=== PATIENT | female | born 1965 | race Caucasian/White ===

== ENCOUNTER 2019-04-29 08:42 | Outpatient (CLI) | payer OTHER, SELFPAY ==
--- NOTE | ~2019-04-29 | XR_ITS ---
XR hand LT min 3V DATE: 04/29/2019 09:09 INDICATION: Hand pain. Trigger thumb. No known injury. TECHNIQUE: 3 views COMPARISON: 03/23/2010 left wrist FINDINGS: Old healed fracture deformity of the distal radius. There is a mildly dorsally displaced intra-articular dorsal avulsion fracture of the base of the dist al phalanx of the fourth digit which appears most likely chronic. No recent fracture or dislocation, periosteal reaction or bone destruction is detected. Mild to moder ate osteopenia is suggested. IMPRESSION: Old distal radial fracture Likely old ununited chronic avulsion fracture of the dorsal base of the distal phalanx Reviewed, dictated and finalized at location B.
== END 2019-04-29 08:43 | disposition home or self-care (01) ==
PROVIDERS: PCP Internal Medicine; Visit Provider Internal Medicine
DX: M65.312 Trigger thumb, left thumb (principal); M79.643 Pain in unspecified hand
CPT/HCPCS: 73130

== ENCOUNTER 2019-07-13 15:04 | Emergency (ER) | payer OTHER, SELFPAY ==
--- NOTE | 2019-07-13 15:08 | ED.WOUNDLAC ---
HPI - Wound/Laceration General Chief Complaint: Wound/Laceration Stated Complaint: lacreation on hand Time Seen by Provider: 07/13/19 15:09 Source: patient and RN notes reviewed Mode of arrival: ambulatory Limitations: no limitations History of Present Illness HPI narrative: patient cut her left base of her thumb on a barbecue grill lid when it came down on her hand. Onset (ago): minute(s) Extremity Location: Left: hand Place: home Patient tetanus UTD: No Context: accidental Associated symptoms: none Related Data Allergies Allergy/AdvReac Type Severity Reaction Status Date / Time codeine Allergy Unknown VOMITING, Unverified 06/03/08 15:51 ITCHING Penicillins Allergy Unknown HIVES Unverified 06/03/08 15:51 Review of Systems Review of Systems: All systems reviewed & are unremarkable except as noted in HPI and below PMFSH Past Medical History Medical History (Updated 07/13/19 @ 15:57 by Emery Gonzalez MD) Seizure disorder Surgical History Surgical History (Updated 07/13/19 @ 15:57 by Emery Gonzalez MD) H/O hysterectomy for benign disease History of appendectomy History of foot surgery History of surgery on arm Social History Social History (Updated 07/13/19 @ 15:58 by Emery Gonzalez MD) Smoking packs per day: 0.5 Smoking cigarettes per day: 10.0 Smoking status: Current every day smoker Tobacco type: cigarettes Alcohol intake: current Alcohol use details: occasional Substance use: never Exam Const: General: healthy appearing, no acute distress and alert Nutritional Appearance: well nourished Orientation/consciousness: patient oriented x3 HENMT: Head: normal to inspection Eyes: Conjunctivae: conjunctivae normal Pupils: Equal, round and reactive pupils present EOM: EOMs intact bilaterally Neck: Neck: normal visual inspection Resp: Effort & Inspection: normal respiratory effort Auscultation: clear to auscultation bilaterally Cardio: Rate: regular rate Rhythm: regular rhythm GI: Auscultation: normal bowel sounds Back/Spine/Pelvis: Cervical Spine: cervical ROM normal Thoracic/Lumbar Spine: thoraco-lumbar ROM normal Skin: General skin exam: normal color Wounds: wounds noted flap left dorsal hand Other: On the hand is the 2.5 cm wound at the base of the left thumb but actually on the hand. Neuro: General: patient oriented x3, moves all extremities and no focal motor deficits Speech: normal speech Extrem: General: normal to inspection and no pedal edema Psych: Appearance: grossly normal and well kempt Mental Status: mental status grossly normal Affect: normal affect Attitude: cooperative Thought content: Yes Normal thought content present Procedures Laceration Laceration 1: Date: 07/13/19 Time: 15:33 Site: hand ( Base of left thumb) Side (If applicable): left Size (cm): 2.5 Description: flap and contaminated Depth: simple, single layer Local Anesthetic: lidocaine 1% Pre-repair: wound explored and irrigated ====== Skin Level ====== Skin layer closed with: nylon Size (cm): 4-0 Number of sutures: 4 Technique: simple, interrupted ====== Subcutaneous Layer ====== ====== Muscle Layer ====== ====== Tendon Layer ====== Discharge Plan Discharge Clinical Impression: Laceration Patient Disposition: Home, Self-Care Condition: Stable Instructions: Laceration (ED) Additional Instructions: Tylenol or Motrin as needed for pain. Sutures out in 10 days. Prescriptions: New clindamycin HCl 300 mg capsule 300 mg PO Q8H Qty: 21 RF: 0 Follow-up/Referrals: Bhupinder Jackson MD [Primary Care Provider] - Time of Disposition: 15:47
[2019-07-13 15:10] VITALS: BP 106/71; PULSE 96; RESP 18; TEMP 36.1; O2SAT 96
[2019-07-13] MEDS: TETANUS,DIPHTHERIA,AC PERTUSSIS ADULT 0.5 ML (ADACEL) IM (15:20)
== END 2019-07-13 15:50 | disposition home or self-care (01) ==
PROVIDERS: Emergency Provider Emergency Medicine; PCP Internal Medicine
DX: S61.412A Laceration without foreign body of left hand, initial encounter (principal); W45.8XXA Other foreign body or object entering through skin, initial encounter
CPT/HCPCS: 12001; 90471; 90715; 99282; 99283

== ENCOUNTER 2020-06-02 12:48 | Outpatient (CLI) | payer OTHER, SELFPAY ==
--- NOTE | ~2020-06-02 | XR_ITS ---
XR lumbar spine 2-3V DATE: 06/02/2020 13:37 INDICATION: Lower thoracic and upper lumbar spine TECHNIQUE: AP, lateral, coned lateral lumbosacral views COMPARISON: 02/21/2009 lumbar spine FINDINGS: There is diffuse osteopenia. No fracture or bone destruction of the lumbar spine is evident. The lumbar pedicles are intact. Lumbar interspaces are relatively well preserved. There is mild degenerative spurring. The sacroiliac joints are intact. IMPRESSION: Diffuse osteopenia Mild degenerative spurring of the lumbar spine Reviewed, dictated and finalized at location A.
--- NOTE | ~2020-06-02 | XR_ITS ---
XR thoracic spine 3V DATE: 06/02/2020 13:37 INDICATION: Low thoracic and upper lumbar back pain, radiating to left hip TECHNIQUE: AP, lateral, swimmer views COMPARISON: None FINDINGS: Diffuse osteopenia. There is degenerative spurring of the thoracic spine. No fracture or bone destruction is evident. The thoracic pedicles are intact. No paraspinal soft tissue thickening. IMPRESSION: Recent osteopenia Mild degenerative spurring Reviewed, dictated and finalized at location A.
== END 2020-06-02 12:49 | disposition home or self-care (01) ==
LOC: CHSIMG 12:51
PROVIDERS: PCP Internal Medicine; Visit Provider Internal Medicine
DX: M54.9 Dorsalgia, unspecified (principal); F17.200 Nicotine dependence, unspecified, uncomplicated
CPT/HCPCS: 72072; 72100

== ENCOUNTER 2020-06-21 08:22 | Outpatient (CLI) | payer OTHER, SELFPAY ==
--- NOTE | ~2020-06-21 | DEXA_ITS ---
Bone Density Report Name: Brenna Hines Age: 54 Sex: Female Ethnicity: White Date of : 1965 Indication: postmenopausal; screening for osteoporosis; seizure disorder; Referring Provider: Bhupinder Jackson Study: Bone densitometry was performed. Exam Date: June 21, 2020 Accession number: [id number] Bone Density: Region BMD T-score Z-score Classification AP Spine(L1-L4) 0.716 -3.0 -2.0 Osteoporosis Femoral Neck (Left) 0.613 -2.1 -1.1 Osteopenia Total Hip (Left) 0.754 -1.5 -0.9 Osteopenia Femoral Neck (Right) 0.595 -2.3 -1.2 Osteopenia Total Hip (Right) 0.786 -1.3 -0.6 Osteopenia Femoral Neck Mean 0.604 -2.2 -1.2 Osteopenia Total Hip Mean 0.770 -1.4 -0.7 Osteopenia World Health Organization criteria for BMD impression classify patients as: Normal (T-score at or above -1.0), Osteopenia (T-score between -1.0 and -2.5), or Osteoporosis (T-score at or below -2.5). 10-year Fracture Risk: FRAX not reported because: Some T-score for Spine Total or Hip Total or Femoral Neck at or below -2.5 Clinical Information Provided by Patient: Smokes Has used the following medications: Vitamin D, Calcium Has the following medical conditions: Any Seizure Disorders Patient maximum height was 68 Menopause Age: 40 Drinks caffeinated beverages Onset of menses at age 17 Number of children 0 Impression: The patient has osteoporosis, based on the Total Spine T-score. The patient has risk factors, including: smoking. Discussion: HIGH RISK OF FRACTURE. BONE DENSITY IS UNDESIRABLY LOW AT ONE OR MORE SKELETAL SITES, CONSISTENT WITH OSTEOPOROSIS. ALSO, BONE DENSITY IS LOWER THAN EXPECTED FOR AGE AND SEX AT ONE OR MORE SKELETAL SITES; RECOMMEND A DILIGENT SEARCH FOR SECONDARY CAUSES OF BONE LOSS. This patient's lowest T-score meets the World Health Organization's (WHO) criteria for osteoporosis at one or more sites (T-score -2.5 or below). In untreated patients, the risk of osteoporotic fracture increases approximately two-fold for each 1.0 SD decrease in T-score. Low bone density is not the only risk factor for fracture; also consider factors such as patient's age, frailty or poor health, risk of falling, risk of injury, previous osteoporotic fracture, family history of osteoporosis, cigarette smoking, low body weight, etc. Not everyone with low bone mineral density has osteoporosis; osteomalacia and other metabolic bone disorders should also be considered. Patients who have osteoporosis should be evaluated for specific diseases and conditions (secondary causes) that may cause or contribute to bone loss. The [place] [employer]ocrinologists (AACE) and National Osteoporosis Foundation (NOF) recommend pharmacologic intervention for all postmenopausal women whose T-score is in this range. Als
== END 2020-06-21 08:23 | disposition home or self-care (01) ==
LOC: CHSIMG 08:23
PROVIDERS: PCP Internal Medicine; Visit Provider Internal Medicine
DX: Z78.0 Asymptomatic menopausal state (principal); M81.0 Age-related osteoporosis without current pathological fracture
CPT/HCPCS: 77080

== ENCOUNTER 2020-07-05 10:50 | Outpatient (RCR) | payer OTHER, SELFPAY ==
--- NOTE | 2020-07-05 12:01 | PTOPEVAL ---
Thank you for referring Brenna Hines to [facility].? The patient is scheduled to be seen for therapy? ____x/week for ___ weeks. Please review, sign, date and return this plan of care KIANA. I agree with and certify that the following plan of care is medically necessary. Referring Physician Date Admitting Provider: Attending Provider: Bhupinder Jackson MD Referring Provider: *PT Outpatient Evaluation Start: 07/05/20 07:02 Freq: Status: Active Protocol: Document 07/05/20 11:03 [facility] (Rec: 07/05/20 12:00 [facility] [id number]) Therapy Assessment Status Assessment Status Assessment Status Evaluation Outpatient Past Medical History Neurological History Hx Seizures Yes Musculoskeletal History Hx Orthopedic Surgery Yes: left arm, geri feet Reproductive History Hx Hysterectomy Yes Evaluation Information Problem Diagnosis LBP Onset 05/16/20 Subjective Information Patient states that she woke Query Text:As Reported By Patient/ up and her lower back started Family bothering her to where she could not get up, and then as that pain started to fade, her L hip started to bother her. Patient states that standing up from a seated position is difficulty, walking/standing for a prolonged period of time are also difficult. Patient denies radicular symptoms and it is not waking her up at night. Patient states that her goal for therapy is to be able to walk without a limp. Prior Level of Function Activity Level (Last 3 Months) Occupation bartendere Hand Dominance Right Activity of Daily Living Ability Independent Indoor/Home Mobility Independent Community Mobility Independent Stairs Ability Independent Functional Cognition (Planning, Shopping Independent , Taking Medications) Cooking Yes Cleaning Yes Laundry Yes Shopping Yes Driving Yes Pain Assessment Timing of Pain Assessment Timing of Pain Assessment Assessment Pain Scale Pain Scale Used Numeric (1 - 10) Self Report Pain Assessment Left Back Reported Pain Level 2 Greatest Pain Intensity 9 Pain Score Pain Score 2: Self Report Interventions Used Interventions Us
--- NOTE | 2020-07-29 16:38 | PCPTNOTE ---
Patient is a 54 year old female that participated in the initial evaluation for low back pain. The patient was called and a message was left on her voicemail. The patient has not returned the phone call and is to be discharged at this time. Please refer to initial evaluation for discharge status. Thank you, Concepción Frey DPT
== END 2020-07-05 11:15 | disposition home or self-care (01) ==
LOC: CHSPT 10:50
PROVIDERS: PCP Internal Medicine; Visit Provider Internal Medicine
DX: M54.9 Dorsalgia, unspecified (principal); M19.90 Unspecified osteoarthritis, unspecified site; M81.0 Age-related osteoporosis without current pathological fracture
CPT/HCPCS: 97014; 97110; 97161; G0283

== ENCOUNTER 2021-12-20 10:07 | Outpatient (CLI) | payer OTHER, SELFPAY ==
--- NOTE | ~2021-12-20 | XR_ITS ---
XR chest 2V DATE: 12/20/2021 10:50 INDICATION: Quit smoking 4 months ago TECHNIQUE: PA and lateral views COMPARISON: 02/21/2009 two-view chest FINDINGS: Normal heart size. No hilar or mediastinal enlargement. The lungs are moderately hyperinfla deonte with some accentuation of interstitial markings but no pulmonary infiltrate or consolidation. No pleural effusion or pulmonary vascular congestion or pneumothorax. No hilar or mediastinal enlargemen t. Osteopenia. IMPRESSION: Moderate hyperinflation and probable chronic interstitial lung changes, possibly secondar y to history of smoking Reviewed, dictated and finalized at location A. IMPRESSION: Moderate hyperinflation and probable chronic interstitial lung sommers ges, possibly secondary to history of smoking
--- NOTE | ~2021-12-20 | XR_ITS ---
EXAM: XR_CERV2-3V_CR DATE: 12/20/2021 10:49 HISTORY: neck pain/cervical lymphodenpathy x 4 months r sided . COMPARISON: None available. FINDINGS: Craniocervical association and atlantoaxial joint are aligned. No prevertebral soft tissue swelling. Cervical spine straightening as can occur with positioning or muscle spasm. Vertebral bodi es are aligned. Vertebral body heights are maintained. Multilevel mild degenerative disc narrowing an d facet sclerosis and hypertrophy. No fracture or traumatic malalignment. IMPRESSION: Multilevel degenerative disc disease and facet arthropathy. Reviewed, dictated and finalized at location K.
[2021-12-20 10:27] LABS: Basophils Absolute Auto 0.05 K/mm3 (0.00-0.10); Basophils Percent Auto 0.4 % (0.0-1.0); Eosinophils Absolute Auto 0.19 K/mm3 (0.02-0.50); Eosinophils Percent Auto 1.7 % (1.0-6.0); Hematocrit 44.6 % (35.0-49.0); Hemoglobin 14.9 g/dL (12.0-15.0); Immature Granulocyte Absolute 0.03 K/mm3 (0.00-0.00); Immature Granulocyte Percent A 0.3 % (0.0-0.0); Lymphocytes Absolute Auto 3.95 K/mm3 (1.10-4.50); Lymphocytes Percent Auto 34.7 % (18.0-42.0); Mean Corpuscular HGB Conc 33.4 g/dL (32.0-36.0); Mean Corpuscular Hemoglobin 31.2 pg (27.0-31.0); Mean Corpuscular Volume 93.3 fL (78.0-102.0); Monocytes Absolute Auto 0.61 K/mm3 (0.10-0.90); Monocytes Percent Auto 5.4 % (2.0-11.0); Neutrophils Absolute Auto 6.6 K/mm3 (1.7-7.2); Neutrophils Percent Auto 57.5 % (50.0-70.0); Platelet Count Result 300 K/mm3 (150-420); Red Blood Count 4.78 M/mm3 (4.20-5.40); Red Cell Distribution Width 12.2 % (11.6-14.4); White Blood Count 11.4 K/mm3 (4.8-10.8)
[2021-12-20 11:32] LABS: Alanine Aminotransferase 36 U/L (14-59); Alkaline Phosphatase 123 U/L (46-116); Anion Gap 10 mmol/L (8-16); Aspartate Amino Transferase 19 U/L (15-37); Bilirubin,Total 0.3 mg/dL (0.00-1.00); Blood Urea Nitrogen 10 mg/dL (7-18); Calcium 9.8 mg/dL (8.5-10.1); Carbon Dioxide 28 mmol/L (21-32); Chloride 106 mmol/L (98-108); Estimated Glomerular Filt Rate 59; Glucose 86 mg/dL (70-99); Osmolality Calculated 296 mOsm/kg (285-295); Potassium 4.3 mmol/L (3.5-5.1); Sodium 144 mmol/L (136-145); Thyroid Stimulating Hormone 1.12 uIU/mL (0.36-3.74); Total Protein 7.4 g/dL (6.4-8.2)
== END 2021-12-20 10:08 | disposition home or self-care (01) ==
LOC: CHSLAB 10:11
PROVIDERS: PCP Internal Medicine; Visit Provider Internal Medicine
DX: M54.2 Cervicalgia (principal); R59.1 Generalized enlarged lymph nodes
CPT/HCPCS: 36415; 71046; 72040; 80053; 84443; 85025

== ENCOUNTER 2022-02-10 08:04 | Outpatient (CLI) | payer OTHER, SELFPAY | END 2022-02-10 08:05 | disposition home or self-care (01) | LOC: CHSCARD 08:06 | PROVIDERS: PCP Internal Medicine; Visit Provider Internal Medicine | DX: J44.9 Chronic obstructive pulmonary disease, unspecified (principal) | CPT/HCPCS: 94060; 94726; 94729 ==

== ENCOUNTER 2022-03-23 08:38 | Outpatient (CLI) | payer OTHER, SELFPAY ==
--- NOTE | ~2022-03-23 | CT_ITS ---
CT scan of the Neck Technique: 2.5 mm axial scans were obtained through the neck after intravenous administration of 75 c c Omnipaque 350. Coronal and sagittal reconstructions of the neck were obtained. Dose reduction techn ique was used on this scan by utilizing automated exposure control and iterative reconstruction techn ique. The dose-length product (DLP) was 492.95 mGy-cm. Clinical History: Right neck mass Findings: There is no evidence of any significant cervical lymphadenopathy. Several small, nonenlarged jugulo- digastric and posterior cervical lymph nodes are noted bilaterally. Parapharyngeal spaces appear norm al bilaterally. The parotid and submandibular glands appear normal. The pharyngeal mucosal spaces appear normal. No soft tissue masses are seen in the neck. The thyroid gland appears normal. Images of the lung apices reveal no abnormalities. Impression: No significant abnormalities noted. Reviewed, dictated and finalized at [facility]. [employer] Impression: No significant abnormalities noted.
== END 2022-03-23 08:39 | disposition home or self-care (01) ==
LOC: CHSIMG 08:39
PROVIDERS: PCP Internal Medicine; Visit Provider Internal Medicine
DX: R22.1 Localized swelling, mass and lump, neck (principal)
CPT/HCPCS: 70491; Q9967

== ENCOUNTER 2022-10-04 17:58 | Emergency (ER) | payer OTHER, SELFPAY ==
--- NOTE | ~2022-10-04 | XR_ITS ---
EXAM: XR shoulder LT min 2V DATE: 10/04/2022 19:13 HISTORY: FALL 1 WEEK AGO/PAIN . COMPARISON: None available. FINDINGS: Normal mineralization. No fracture or dislocation. No lytic or blastic lesion. Joint space s are maintained. No erosion or periosteal change. Soft tissues within normal limits. IMPRESSION: No acute osseous finding in the left shoulder. Reviewed, dictated and finalized at location K.
[2022-10-04 18:06] VITALS: BP 107/80; PULSE 80; RESP 18; TEMP 36.3; O2SAT 97
[2022-10-04 19:16] VITALS: BP 107/80; PULSE 80; RESP 18; TEMP 36.3; O2SAT 97
== END 2022-10-04 19:18 | disposition home or self-care (01) ==
LOC: CHSED 19:07
PROVIDERS: Emergency Provider Internal Medicine Critical Care Medicine; PCP Internal Medicine
DX: M75.22 Bicipital tendinitis, left shoulder (principal)
CPT/HCPCS: 73030; 99283

== ENCOUNTER 2022-11-04 10:23 | Outpatient (CLI) | payer OTHER, SELFPAY ==
--- NOTE | ~2022-11-04 | MR_ITS ---
MRI of the left shoulder Technique: Axial proton-density fat-sat images, coronal proton density fat-sat and T2 fat-sat images, and sagittal T1-weighted and T2 fat-sat images were acquired. Clinical History: Pain Findings: Sequences are degraded by motion artifact. There is mild AC joint degenerative change. Coracoclavicular, coracoacromial, and coracohumeral ligam ents are probably intact. There is severe supraspinatus and infraspinatus tendinosis. Suspected focal high-grade partial or ful l-thickness tearing at the junction of the supraspinatus and infraspinatus tendons. Subscapularis ten don is intact, with moderate to severe tendinosis. There is probable longitudinal split tearing of th e biceps tendon within the bicipital groove. No definite labral tear identified. Inferior glenohumeral ligament is intact. There is moderate glenohumeral joint effusion with fluid di stention of the subacromial/subdeltoid bursa. No muscle atrophy or edema evident. No definite degener ative change of the glenohumeral joint. Impression: Suspected full-thickness or high-grade partial tearing at the junction of the supraspinatus and infra spinatus tendons. Evaluation is degraded by motion artifact. Longitudinal split tearing of the biceps tendon within the bicipital groove. Severe rotator cuff tendinosis, as detailed above. Moderate glenohumeral joint effusion with prominent fluid distention of the subacromial/subdeltoid bu rsa. This may be related to fluid accumulation in the bursa through a focal full-thickness rotator cu ff tear. Reviewed, dictated and finalized at location . Impression: Suspected full-thickness or high-grade partial tearing at the junction of the s upraspinatus and infraspinatus tendons. Evaluation is degraded by motion artifa ct. Longitudinal split tearing of the biceps tendon within the bicipital groove. Severe rotator cuff tendinosis, as detailed above. Moderate glenohumeral joint effusion with prominent fluid distention of the sub acromial/subdeltoid bursa. This may be related to fluid accumulation in the bur sa through a focal full-thickness rotator cuff tear.
== END 2022-11-04 10:24 | disposition home or self-care (01) ==
LOC: CHSIMG 10:24
PROVIDERS: PCP Internal Medicine; Visit Provider Nurse Practitioner Family
DX: M25.512 Pain in left shoulder (principal); S46.212A Strain of muscle, fascia and tendon of other parts of biceps, left arm, initial encounter; M77.8 Other enthesopathies, not elsewhere classified; M25.412 Effusion, left shoulder
CPT/HCPCS: 73221

== ENCOUNTER 2022-11-14 13:22 | Outpatient (RCR) | payer OTHER, SELFPAY ==
--- NOTE | 2022-11-14 15:04 | OPREHPOC ---
Outpatient Therapy Plan of Care This is a Multidisciplinary Plan of Care that may contain components documented by all disciplines (PT, OT, and ST.) PT Problem 1 PT Problem #1 Knowledge Deficit PT Goal 1 Goal Patient to demonstrate independence with HEP Target Visit 5 PT Problem 2 PT Problem #2 Pain PT Goal 1 Goal 1. Patient to report highest pain at 2/10 2. Patient to report ability to sleep with no increase in pain Target Visit 10 PT Problem 3 PT Problem #3 Impaired Range of Motion PT Goal 1 Goal Patient to demonstrate 160 deg of L shoulder flexion to return to reaching into cabinets at PLOF Target Visit 10 PT Problem 4 PT Problem #4 Impaired Strength PT Goal 1 Goal Patient to demonstrate 5/5 strength of the L shoulder to return to house hold tasks at PLOF Target Visit 10 PT Problem 5 PT Problem #5 Impaired Functional Mobil PT Goal 1 Goal 1.Patient to report ability to dress with no increase in pain 2.Patient to report ability to fix her hair with no increase in pain Target Visit 10
--- NOTE | 2022-11-14 15:04 | PTOPEVAL1 ---
Assessment and note entered by Shelly Gama DPT Evaluation Information Assessment Status Evaluation Diagnosis L shoulder pain Onset 11/07/22 Subjective Information Patient reports on Sep 20 she fell off a bar stool onto her L shoulder. She reports she got a xray and it was negative but pain kept getting worse and was set up with an MRI that shows a tear in the bicep, supraspinatus and infraspinatus. She reports that she has most difficulty with sleeping, washing her hair and performing heavy house hold tasks. She goes to see a suregon on . Prior to fall she did not have any shoulder pain. She works as a bar attendant. Reported Pain Level Pain Score 8: Self Report Assessment PT Clinical Summary Patient is a 57 year old female who presents to PT with L shoulder pain. Patient demonstrates L shoulder pain, decreased L shoulder ROM and decreased L shoulder strength. Patient has had an MRI that shows tear in the infraspinatus, supraspinatus and bicep. She has difficulty fixing her hair, sleeping, and completing house hold tasks. Patient would benefit from skilled PT to address impairments and return to PLOF. Plan of Care Interventions Electrical Stimulation,Hot Pack/Cold Pack,Manual Therapy,Mechanical Traction,Neuro Re-education, Patient/Caregiver Educati,Therapeutic Activities, Therapeutic Exercise PT Services Indicated Yes Treatment Frequency and 2x weekly for 10 visits Duration These treatments will address the objective and functional deficits as defined above. The patient will be advanced safely and appropriately in order for the patient to progress towards his/her prior level of function. Additional exercises will be introduced and as well as a comprehensive home exercise program upon discharge, if needed, ?to ensure carryover of functional gains achieved in the clinic. This treatment plan has been reviewed and agreement upon by the patient.
== END 2022-11-14 20:00 | disposition still patient (30) ==
LOC: CHSPT 13:22
PROVIDERS: PCP Internal Medicine; Visit Provider Internal Medicine
DX: S46.012D Strain of muscle(s) and tendon(s) of the rotator cuff of left shoulder, subsequent encounter (principal); M25.512 Pain in left shoulder
CPT/HCPCS: 97110; 97161

== ENCOUNTER 2023-02-09 14:52 | Outpatient (RCR) | payer OTHER, SELFPAY ==
[2023-02-09 15:14] VITALS: BP_SYST 105
--- NOTE | 2023-02-09 16:04 | PTOPEVAL1 ---
Assessment and note entered by Shelly Gama DPT Evaluation Information Assessment Status Evaluation Diagnosis L shoulder pain Onset 01/10/23 Subjective Information Patient reports she underwent R RTC repair with bicep anchoring on 01/10/23. She reports she has been in a sling but will remove sling for up to 3 hours at home. She reports she has been moving her arm. She reports she was instructed not to lift anything but has been doing some lifting at home. She reports she has not been working. She reports washing and fixing her hair has been difficult as well as completing house hold tasks. She returns to MD on 02/22/23/ Reported Pain Level Pain Score 1: Self Report Pain Score 8: Self Report Assessment PT Clinical Summary Brenna Hines is a 57 year old female who presents to PT with L shoulder pain and weakness s/p L RTC repair on 01/10/23. She demonstrates decreased L shoulder ROM and strength impairing her ability to complete house hold tasks, sleep and fix her hair . She would benefit from skilled PT to address impairments and return to OF. Plan of Care Interventions Electrical Stimulation,Hot Pack/Cold Pack,Manual Therapy,Neuro Re-education,Patient/Caregiver Educati,Therapeutic Activities,Therapeutic Exercise PT Services Indicated Yes Treatment Frequency and 2x weekly for 10 visits Duration These treatments will address the objective and functional deficits as defined above. The patient will be advanced safely and appropriately in order for the patient to progress towards his/her prior level of function. Additional exercises will be introduced and as well as a comprehensive home exercise program upon discharge, if needed, ?to ensure carryover of functional gains achieved in the clinic. This treatment plan has been reviewed and agreement upon by the patient.
[2023-03-06 14:52] VITALS: BP_SYST 170
--- NOTE | 2023-03-06 15:36 | OPREHPOC ---
Outpatient Therapy Plan of Care This is a Multidisciplinary Plan of Care that may contain components documented by all disciplines (PT, OT, and ST.) PT Problem 1 PT Problem #1 Knowledge Deficit PT Goal 1 Goal Patient to demonstrate independence with HEP Target Visit 5 Progress Met PT Problem 2 PT Problem #2 Pain PT Goal 1 Goal 1. Patient to report highest pain at 2/10 2. Patient to report ability to sleep with no increase in pain Target Visit 10 Progress Partially Met PT Problem 3 PT Problem #3 Impaired Range of Motion PT Goal 1 Goal Patient to demonstrate 160 deg of L shoulder flexion to return to reaching into cabinets at PLOF Target Visit 10 Progress Met PT Problem 4 PT Problem #4 Impaired Strength PT Goal 1 Goal Patient to demonstrate 5/5 strength of the L shoulder to return to house hold tasks at PLOF Target Visit 10 Progress Not Met PT Problem 5 PT Problem #5 Impaired Functional Mobil PT Goal 1 Goal 1.Patient to report ability to dress with no increase in pain 2.Patient to report ability to fix her hair with no increase in pain Target Visit 10 Progress Met
--- NOTE | 2023-03-06 15:37 | PTOPEVAL1 ---
Assessment and note entered by Shelly Gama DPT Evaluation Information Assessment Status Discharge Diagnosis L shoulder pain Onset 01/10/23 Subjective Information Patient reports she would like to make today her last visit. She reports besides yesterday she has been feeling good. She reports she has returned to work just no lifting over head. She reports she has returned to dressing and fixing her hair at PLOF. Reported Pain Level Pain Score 2: Self Report Pain Score 8: Self Report Assessment PT Clinical Summary Ms. Hines has been seen for 9 visits of skilled PT since surgery on 01/10/23. Patient made great progress towards goals. She met goals for HEP, ROM and dressing and bathing tasks. She has not met goal for strength but has made significant improvements. She has returned to work as well as performing ADLs. She is independent with HEP and is appropriate for DC at this time. Plan of Care Interventions Electrical Stimulation,Hot Pack/Cold Pack,Manual Therapy,Neuro Re-education,Patient/Caregiver Educati,Therapeutic Activities,Therapeutic Exercise PT Services Indicated No Treatment Frequency and DC to independent HEP Duration These treatments will address the objective and functional deficits as defined above. The patient will be advanced safely and appropriately in order for the patient to progress towards his/her prior level of function. Additional exercises will be introduced and as well as a comprehensive home exercise program upon discharge, if needed, ?to ensure carryover of functional gains achieved in the clinic. This treatment plan has been reviewed and agreement upon by the patient.
== END 2023-03-06 16:13 | disposition home or self-care (01) ==
LOC: CHSPT 14:52
PROVIDERS: PCP Internal Medicine; Visit Provider Nurse Practitioner Family
DX: S46.012D Strain of muscle(s) and tendon(s) of the rotator cuff of left shoulder, subsequent encounter (principal); M25.512 Pain in left shoulder
CPT/HCPCS: 97110; 97161

== ENCOUNTER 2024-03-12 08:12 | Outpatient (CLI) | payer OTHER, SELFPAY ==
--- NOTE | ~2024-03-12 | MM_ITS ---
EXAMINATION: MM screening ilya BI w babatunde HISTORY: Screening TECHNIQUE: Craniocaudal and mediolateral oblique 3-D tomosynthesis images were obtained and synthetic 2-D images were generated. CAD analysis was submitted and interpreted. COMPARISON: Comparison to multiple prior studies sequentially, with oldest reviewed study dated 04/29. BREAST PARENCHYMAL COMPOSITION: Not dense: There are scattered areas of fibroglandular density. FINDINGS: There is no evidence of suspicious mass, calcification, or architectural distortion to sugg est malignancy in either breast. There has been no suspicious interval change. IMPRESSION: 1. No mammographic evidence of malignancy. 2. Recommend routine screening mammography in one year. BI-RADS Category 1: Negative Reviewed, dictated and finalized at location A. R MAKING MACHINE SUPERVISOR
--- OUTSIDE RECORDS SUMMARY | 2024-03-13 21:39 | XMS_ITS | Encounter Summary ---
Author Organization [facility] Address [address] [place] [address]. [place], [place] [id number] [place] [address] Care Team Providers Care Valve Setter Name Role Phone Bhupinder Jackson MD Primary Care Provider [phone] Encounter Details Date Type Department Care Team (Late st Contact Info) Description 07/19/2018 Abstract SFL CONVERSION [address] [place] [address] , Generic ConversionMD Social History Tobacco Use Types Packs/Day Years Used Date Smoking Tobacco: Never Assessed Comments Unknown Sex and Gender Information Value Date Recorded Sex Assigned at Not on file Legal Sex Female 4:03 PM CDT Gender Identity Not on file Sexual Orientation Not on file documented as of this encounter Plan of Treatment Not on file documented as of this encounter Visit Diagnoses Not on filedocumented in this encounter Care Teams Valve Setter Relationship Specialty Start Date End Date Bhupinder Jackson MD [address] [place] [address] PCP - General INTERNAL MEDICINE 08/01/18 documented as of this encounter
--- OUTSIDE RECORDS SUMMARY | 2024-03-13 21:39 | XMS_ITS | Clinical Summary ---
Author Organization [facility] (formerly [facility])[3] at the [facility] Address [address] [place] [address] Care Team Providers Care Mechanic General Operational Test Name Role Phone Bhupinder Jackson MD Primary Care Provider [phone] Allergies Active Allergy Reactions Criticality Noted Date Comments Codeine Stomach upset Low 03/15/2020 Penicillins Unknown,Anaphylaxis,Hives High 0 Medications biotin 1 mg capsule Take 1 capsule by mouth daily Active lysine 1,000 mg tablet Take 1 tablet by mouth daily Active vitamin b complex tablet Take 1 tablet by mouth daily Active MULTIVITAMIN ORAL Take 1 tablet by mouth daily Active alendronate (FOSAMAX) 70 mg tablet Take 1 tablet by mouth once a week 05/23/2021 Active clindamycin (CLEOCIN) 300 mg capsule 05/30/[address] (VOLTAREN) 75 mg EC tablet 05/30/2022 Active ibuprofen (ADVIL,MOTRIN) 600 mg tablet 07/31/2023 Activ e lidocaine (LIDODERM) 5 % 07/31/2023 Acti ve orphenadrine ER (NORFLEX) 100 mg 12 hr tablet 07/31/2023 Active potassium chloride (KLOR-CON) 20 mEq packet Take 1 packet (20 mEq total) by mouth 2 (two) times a day Active lamoTRIgine (LaMICtal) 100 mg tabletIndication s:Nonintractable generalized idiopathic epilepsy without status epilepticus (HCC) Take 1 tablet (100 mg total) by mouth 2 (two) times a day 180 tablet 3 11/20/2023 11/20/19 25 Active Active Problems Problem Noted Date Diagnosed Date Nonintractable generalized i diopathic epilepsy without status epilepticus 05/03/2020 Assessment & Plan (05/03/2020 12:07 PM CDT): Patient's a former patient of [facility] being treated for primary generalized seizures with lamotrigine 100 mg b.i.d.. She reports no seizures over the past year. She has no tolerability issues with medication. She is in need of refill is requesting same. I have renewed her lamotrigine 100 mg b.i.d. as previously prescribed. I will see her back in 1 year. Immunizations Name Administration Dates Next Due Td, adsorbed 08/25/2015 Tdap 07/13/2019 Surgical History Surgery Date Site/Laterality Comments APPENDECTOMY CHOLECYSTECTOMY TONSILLECTOMY/ADENOIDECTOMY HYSTERECTOMY 02/19/2006 - 02/18/2007 ORIF WRIST FRACTURE Left ORIF FOOT FRACTURE Bilateral TEMPOROMANDIBULAR JOINT ARTHROPLASTY Right NECK MASS EXCISION TRIGGER FINGER RELEASE 1965 Left Release left trigger thumb Medical History Medical History Date Comments Seizures (HCC) Family History Medical History Relation Name Comments No Known Problems Brother No Known Problems Father Diabetes Mother No Known Problems Sister 1 No Known Problems Sister 2 No Known Problems Sister 3 No Known Problems Sister 4 Relation Name Status Comments Brother Alive Father Alive Mother Alive Sister 1 Alive Sister 2 Alive Sister 3 Alive Sister 4 Alive Social History Tobacco Use Types Packs/Day Years Used Date Smoking Tobacco: Every Day Cigarettes 0.3 10 Smokeless Tobacco: Never AUDIT-C Answer Date Recorded Q1: How often do you have a drink containing alc ohol? Never 06/17/2021 Average Number of Drinks Not on file 022 Q3: How often do you have si x or more drinks on one occasion? Never 06/17/2021 Comments No Sex and Gender Information Value Date Recorded Sex Assigned at Not on file Legal Sex Female 3:31 AM MERCHANDISING COORDINATOR Gender Identity Not on file Sexual Orientation Not on file Obstetrics History Last Filed Vital Signs Vital Sign Reading Time Taken Comments Blood Pressure 109/69 11/20/2023 11:13 AM CDT Pulse 83 11/20/2023 11:13 AM CDT Temperature 36.6 ??C (97.8 ??F) 07/04/2022 3:05 PM CD T Respiratory Rate 19 11/20/2023 11:13 AM CDT Oxygen Saturation 93% 11/20/2023 11:13 AM CDT Inhaled Oxygen Concentration - - Weight 75.3 kg (166 lb) 11/20/2023 11:13 AM CDT Height 172.7 cm (5' 8 ) 11/20/2023 11:13 AM CDT Body Mass Index 25.24 11/20/2023 11:13 AM CDT Plan of Treatment Health Maintenance Due Date Last Done Comments Colon Cancer Screening-Colonoscopy 1965 Depression Screening 1965 Hepatitis C Screening 1965 Pneumococcal vaccine <65 (1 of 2 - PCV) 09/23/1971 Hepatitis B Screening 09/23/1983 Regular Well Visit/Exam 18-64 09/23/1983 Zoster Vaccine (1 of 2) 09/23/2015 Breast Cancer Screening-Mammogram 07/15/2021 07/15/2020, 07/15/2020, 08/01/2018 Influenza Vaccine (#1) 2023 DTaP/Tdap/Td Vaccine (2 - Td or Tdap) 07/12/2029, 08/25/2015 Insurance [facility] [address] [place] [id number] [employer] [facility] Care Teams Mechanic General Operational Test Relationship Specialty Start Date End Date Bhupinder Jackson MD PCP - General 09/12/19
--- OUTSIDE RECORDS SUMMARY | 2024-03-13 21:39 | XMS_ITS | Clinical Summary ---
Author Organization [facility] Address [facility] [facility] [place] [address] [place] [address] Care Team Providers Care Consumer Lending Manager Name Role Phone Bhupinder Jackson MD Primary Care Provider [phone] Allergies Active Allergy Reactions Criticality Noted Date Comments Bee Venom Unknown 10/06/2015 Codeine GI Upset 03/15/2020 Penicillins Anaphylaxis,Hives High 03/15/2020 Medications lamoTRIgine 100 MG tablet Take 1 tablet (100 mg total) by mouth daily. Active Multiple Vitamin (MULTIVITAMIN ADULT OR) Take 1 tablet by mouth daily. Active Lysine HCl 1000 MG Tab Take 1 tablet by mouth daily. Active Biotin 1 MG Cap Take 1 capsule by mouth daily. Active B Complex Vitamins (VITAMIN B-COMPLEX) Tab Take 1 tablet by mouth daily. Active potassium chloride (KLOR-CON) 20 MEQ packet Take 1 packet by mouth 2 (two) times daily. Active ibuprofen (MOTRIN) 600 MG tabletIndicatio ns:Low back strain, initial encounter Take 1 tablet (600 mg total) by mouth every 6 (six) hours as needed for Pain. 30 tablet 07/31/2023 Active orphenadrine ER (NORFLEX) 100 MG TABLET SR 12 HR 12 hr tabletIndicatio ns:Low back strain, initial encounter Take 1 tablet (100 mg total) by mouth 2 (two) times daily as needed (muscle spasm). 20 tablet 07/31/2023 Active Active Problems Problem Noted Date Diagnosed Date History of arthroscopic surgery of shoulder 03/22 Orthopedic aftercare 02/08/2023 Biceps tendon tear 12/15/2022 Overview (12/15/2022): Added automatically from request for surgery [id number] Traumatic rotator cuff tear, left, initial encou nter 12/11/2022 Social History Tobacco Use Types Packs/Day Years Used Date Smoking Tobacco: Every Day Cigarettes 0 20 Smokeless Tobacco: Never Tobacco Cessation:Ready to Q uit: Not Asked; Counseling Given: Not Answered Alcohol Use Standard Drinks/Week Comments Not Currently 0 (1 standard drink = 0.6 oz pur e alcohol) socially 1-2 week Comments No Sex and Gender Information Value Date Recorded Sex Assigned at Not on file Legal Sex Female 4:03 PM CDT Gender Identity Not on file Sexual Orientation Not on file Last Filed Vital Signs Vital Sign Reading Time Taken Comments Blood Pressure 113/71 07/31/2023 2:39 PM CDT Pulse 94 07/31/2023 2:39 PM CDT Temperature 36.7 ??C (98 ??F) 07/31/2023 2:39 PM CDT Respiratory Rate 18 07/31/2023 2:39 PM CDT Oxygen Saturation 96% 07/31/2023 2:39 PM CDT Inhaled Oxygen Concentration - - Weight 68 kg (150 lb) 07/31/2023 2:39 PM CDT Height 172.7 cm (5' 8 ) 07/31/2023 2:39 PM CDT Body Mass Index 22.81 07/31/2023 2:39 PM CDT Plan of Treatment Health Maintenance Due Date Last Done Comments Colorectal Cancer Screening Colonoscopy (10 Years) 1965 Annual Physical 1968 Pneumococcal Vaccine: Pediatrics (0 to 5 Years) and At-Risk Patients (6 to 64 Years) (1 of 2 - PCV) 09/23/1971 Hepatitis C 09/23/1983 Hepatitis B Vaccines (1 of 3 - 19+ 3-dose series) 1984 Zoster Vaccines (1 of 2) 09/23/2015 Mammogram Screening 07/15/2022 07/15/2020, 08/01/2018 COVID-19 Vaccine (1 - 2023-2 5 season) 2023 Influenza Adult (#1) 2023 DTaP, Tdap and Td Vaccines ( 2 - Td or Tdap) 07/12/2029 07/13/2019, 08/25/2015, 08/25/2015 Meningococcal Vaccine Aged Out No allen david eligible based on patient's age to complete this topic RSV Immunizations Under 20 Months Aged Out No longer eligible b ased on patient's age to complete this topic Medical Devices Implanted Type Area Child Welfare Director Device Identifier Shelf Expiration Date Model / Serial / Lot Suture [place], Swivelock [employer]odesis, Biocomposite 7x19.1mm - [id number] Implanted:Qty: 1 on 01/10/2023 by Dennis Caldwell MD at [facility] [place] Left: Shoulder [employer] [id number] 10/19/2026 AR-1662BC C-7 / / [id number] [place] Suture Bio-Swivelock C [employer] White/Black 4.75 X 19.1mm - [id number] Implanted:Qty: 1 on 01/10/2023 by Dennis Caldwell MD at [facility] [place] Left: Shoulder [employer] [id number] 08/18/2026 AR-2324BC CTT / / [id number] [place] Suture Bio-Swivelock C [employer] - [id number] Implanted:Qty: 1 on 01/10/2023 by Dennis Caldwell MD at [facility] [place] Left: Shoulder [employer] [id number] 09/18/[address] / / [id number] [place] Suture Swivelock Self Punch 24.5mm Biocomposite - [id number] Implanted:Qty: 1 on 01/10/2023 by Dennis Caldwell MD at [facility] [place] Left: Shoulder [employer] [id number] 04/18/2026 AR-2324BC M / / [id number] [place] Suture Swivelock Self Punch 24.5mm Biocomposite - [id number] Implanted:Qty: 1 on 01/10/2023 by Dennis Caldwell MD at [facility] [place] Left: Shoulder [employer] [id number] 04/18/2026 AR-2324BC M / / [id number] Procedures Procedure Name Priority Date/Time Associated Diagnosis Comments MG SCREENING W NAFISA ANGELINA DIGI Routine 07/15/2020 3:28 PM CDT Visit for screening mammogram from Last 3 Months or Most Recently Relevant to Health Maintenance Results * MG SCREENING W NAFISAGiovany RYAN (07/15/2020 3:28 PM CDT) Anatomical Region Laterality Modality Breast Bilateral Mammography 07/16/2020 2:30 PM CDT Impressions 07/16/2020 2:37 PM CDT IMPRESSION: ??There is no mammographic evidence of breast malignancy. RECOMMENDATION: The patient may resume routine screening mammography in Jun, 2021 provided there is no clinical ??indication for additional imaging of the breasts before then. CATEGORY: BIRADS 2 - BENIGN. Referred By: ARIAN FRAGA Interpreted By: Kevin Lr MD, 07/16/2020 2:30 PM Narrative 07/16/2020 2:37 PM CDT EXAMINATION: BILATERAL SCREENING MAMMOGRAM EXAM DATE: ??07/15/2020 3:28 PM CLINICAL INDICATION: This is a routine screening exam. The patient reports no breast complaints. TECHNIQUE: Each breast has been imaged in CC and MLO projection utilizing both 2-D and 3-D tomosynthesis technique. ??The current mammographic images are also evaluated by a computer aided detection system (CAD). COMPARISON: Bilateral mammograms dated 08/01/2018, 04/29/2014. FINDINGS: ??The breast tissue is of scattered fibroglandular density. No spiculated mass, suspicious microcalcification, architectural distortion, skin thickening or axillary adenopathy is seen. ??There has been some fatty involution of the breasts since the prior studies. us Arian Fraga MD MAMMO Final Result from Last 3 Months or Most Recently Relevant to Health Maintenance Insurance [employer] Care Teams Consumer Lending Manager Relationship Specialty Start Date End Date Bhupinder Jackson MD [address] [place] [address] PCP - General INTERNAL MEDICINE 08/01/18
--- OUTSIDE RECORDS SUMMARY | 2024-03-13 21:39 | XMS_ITS | Referral Summary ---
Author Organization [facility] at the [facility] Address [address] [place] [address] Care Team Providers Care Hotel Superintendent Name Role Phone Bhupinder Jackson MD Primary Care Provider [phone] Allergies Active Allergy Reactions Criticality Noted Date [...] PM CDT): Patient's a former patient of [facility] being treated for primary generalized seizures [...] Next Due Td, adsorbed 08/25/2015 Tdap 07/13/2019 Social History Tobacco Use Types Packs/Day Years [...] on file Legal Sex Female 3:31 AM EARLY BREASTFEEDING CARE SPECIALIST Gender Identity Not on file Sexual Orientation [...] 11/20/2023 11:13 AM CDT Plan of Treatment Not on file Insurance [employer] [facility] Care Teams Hotel Superintendent Relationship Specialty Start Date End Date Bhupinder Jackson MD PCP - General 09/12/19
== END 2024-03-12 08:13 | disposition home or self-care (01) ==
PROVIDERS: PCP Internal Medicine; Visit Provider Internal Medicine
DX: Z12.31 Encounter for screening mammogram for malignant neoplasm of breast (principal)
CPT/HCPCS: 77063; 77067